=== PATIENT | female | born 1970 ===

== ENCOUNTER → 2021-09-22 | Outpatient (CLI) | payer OTHER ==
--- NOTE | 2021-09-22 10:56 | RAD ---
EXAM: Bilateral digital diagnostic mammogram with tomosynthesis; bilateral breast sonogram. HISTORY: 51-year-old female presents with a palpable left breast lump. TECHNIQUE: Full-field digital craniocaudal and mediolateral oblique 2D and 3D tomosynthesis images of both breasts are obtained for evaluation. Computer aided detection was applied. Sonographic imaging of both breasts targeted to areas of mammographic nodularity and the site of palpable concern within the left breast was also performed. COMPARISON: 11/08/2020 BREAST PARENCHYMAL DENSITY: Level D - Extremely dense. FINDINGS: There are multiple circumscribed masses within both breasts, the configuration and multiple CT which favors a benign etiology such as cysts. There are a few benign calcifications. There is no suspicious calcification morphology or distribution. There is no convincing architectural distortion. Sonographic imaging of the right breast demonstrates a 9 mm cyst with adjacent 10 mm cyst containing internal debris at the 1:00 position 5 cm from the nipple. There is also a similar-appearing 9 mm cys t with debris at the 1:00 position 6 cm from the nipple. There is a 1.6 cm simple cyst at the 1:00 po sition 2 cm from the nipple. There is a 1.1 cm cyst at the 7:00 position 5 cm from the nipple. There is a 1.3 cm cyst at the 9:00 position 7 cm from the nipple. There is a 1.9 cm cyst at the 9:00 positi on 7 cm from the nipple. There is a dominant 2.9 cm simple cyst at the 10:00 position 8 cm from the n ipple. There is adjacent simple cyst measuring 1.6 cm at the 10:00 position 9 cm from the nipple. The re is a 1.3 cm cyst with thin internal septation at the 11:00 position 8 cm from the nipple. There is a 10 mm cyst containing debris at the 11:00 position 5 cm from the nipple. There is a 2.4 cm bilobed cyst within internal septation at the 11:00 position 3 cm from the nipple. There is a 6 mm cyst at t he 11:00 position 1 cm from the nipple. There is a 9 mm thick walled cyst with internal debris at the 12:00 position 4 cm from the nipple. There is a 1.7 cm cyst at the 12:00 position 1 cm from the nipp le. There are dilated ducts containing debris within the subareolar aspect of the right breast. No so lid intraductal lesion is seen. There are benign-appearing right axillary lymph nodes. Sonographic imaging of the left breast demonstrates a simple cyst measuring 2.9 cm at the site of pal pable concern at the 3:00 position 5 cm from the nipple. There is a similar-appearing simple cyst leida suring 4.1 cm at the 3:00 position 7 cm from the nipple. There is a lobulated cyst with internal sept ation or cluster of cysts measuring 1.3 cm at the 3:00 position 9 cm from the nipple. There is a 1.4 cm simple cyst at the 3:00 position 11 cm from the nipple. There is a 1.6 cm cyst at the 12:00 positi on 1 cm from the nipple. There is a 5 mm cyst containing debris at the 1:00 position 6 cm from the ni pple. There is an 8 mm cyst at the 4:00 position 1 cm from the nipple. There is a 2.0 cm cyst at the 4:00 position 3 cm from the nipple. There is a thick-walled cyst with internal debris measuring 8 mm at the 4:00 position 7 cm from the nipple. There are benign-appearing left axillary lymph nodes. IMPRESSION: 1. Simple cyst at the 3:00 position of the left breast 5 cm from the nipple measuring 2.9 cm, corresp onding with the site of concern. 2. Extensive additional simple and complicated cysts containing debris throughout both breasts, descr ibed in detail above. The largest cyst on the right measures 2.9 cm at the 10:00 position 8 cm from t he nipple. The largest cyst on the left measures 4.1 cm at the 3:00 position 7 cm from the nipple. 3. Dilated ducts containing debris within the subareolar aspect of the right breast. 4. No convincing suspicious mammographic or sonographic finding. 5. BI-RADS Category 2: Benign finding(s). RECOMMENDATION: Annual mammography is recommended. If your mammogram demonstrates that you have dense breast tissue, which could hide abnormalities, and if you have other risk factors for breast cancer that have been identified, you might benefit from s upplemental screening tests that may be suggested by your ordering physician. Dense breast tissue, i n and of itself, is a relatively common condition. This information is not provided to cause undue c oncern, but rather to raise your awareness and to promote discussion with your physician regarding th e presence of other risk factors, in addition to dense breast tissue. A report of your mammography re sults will be sent to you and your physician. You should contact your physician if you have any ques tions or concerns regarding this report. Mammography is a sensitive method for finding small breast cancers, but it does not detect them all a nd is not a substitute for careful clinical examination. A negative mammogram does not negate a clin ically suspicious finding and should not result in delay in biopsying a clinically suspicious abnorma lity. PQRS compliance statement - Patient information was entered into a reminder system with a target due date for the next mammogram. "Our facility is accredited by the [employer] Mammography [employer]." Electronically signed by: Khushi Powers MD (09/22/2021 10:54 AM) [id number]
== END ==
LOC: MAMMO 08:21
DX: N60.01 Solitary cyst of right breast (principal); N60.02 Solitary cyst of left breast; N64.89 Other specified disorders of breast
CPT/HCPCS: 76641; 77066; G0279; 77062